=== PATIENT | male | born 1995 | race Two or more races ===

== ENCOUNTER 2023-04-07 22:06 | Emergency (ER) | payer OTHER ==
[~2023-04-07] VITALS: Ht 167.6 cm; Wt 93.0 kg
[2023-04-07] MEDS ORDERED: AMLO10TA59 PO (22:55)
[2023-04-07] MEDS ORDERED: ASPIRIN 81 MG TAB.CHEW PO ONE (23:00)
[2023-04-07] MEDS ORDERED: NITROGLYCERIN OINT 1 GM PACKET TP ONE ×2 (23:00→23:14)
[2023-04-07] MEDS ORDERED: ASPIRIN 81 MG TAB.CHEW ONE (23:14)
[2023-04-07 23:34] LABS: *BILIRUBIN,URIN NEGATIVE (NEGATIVE); *CLARITY,URINE CLEAR (CLEAR); *COLOR,URINE YELLOW (YELLOW); *KETONES,URINE NEGATIVE (NEGATIVE); *PROTEIN,URINE NEGATIVE (NEGATIVE); *UROBILINOGEN,URINE 0.2 E.U./dl (NORMAL); LEUKOCYTE ESTERASE ,URINE NEGATIVE (NEGATIVE); NITRITE, URINE NEGATIVE (NEGATIVE); UGLUCOSE NEGATIVE (NEGATIVE)
[2023-04-07 23:59] LABS: *BLOOD, URINE TRACE (NEGATIVE)
[2023-04-08 00:18] LABS: *AMPHETAMINE, URINE NEGATIVE (NEGATIVE); *BARBITURATE, URINE NEGATIVE (NEGATIVE); *BENZODIAZEPINE, URINE NEGATIVE (NEGATIVE); *CANNABINOID, URINE NEGATIVE (NEGATIVE); *COCCAINE, URINE NEGATIVE (NEGATIVE); *OPIATE, URINE NEGATIVE (NEGATIVE); *PHENCYCLIDINE SCREEN,URINE NEGATIVE (NEGATIVE); FENTANYL, URINE NEGATIVE (NEGATIVE)
[2023-04-08 00:18] LABS: CARBON DIOXIDE 21 mmol/L (21-32); CHLORIDE 103 mmol/L (98-107); GLUCOSE 112 mg/dL (74-106); POTASSIUM 3.7 mmol/L (3.5-5.1); SODIUM SERUM 140 mmol/L (136-145); UREA NITROGEN, BLOOD 11 mg/dL (7-18)
[2023-04-08 00:30] LABS: ALANINE AMINOTRANSFERASE 241 U/L (16-63); ALBUMIN 4.6 g/dL (3.4-5.0); ALKALINE PHOSPHATASE 126 U/L (50-136); ASPARTATE AMINOTRANSFERASE 61 U/L (15-37); BILIRUBIN,DIRECT 0.1 mg/dL (0.0-0.2); BILIRUBIN,TOTAL 0.4 mg/dL (0.2-1.0); TOTAL PROTEIN, SERUM 8.3 g/dL (6.4-8.2)
[2023-04-08] MEDS ORDERED: LORAZEPAM 2 MG/1 ML VIAL IV ONE (00:30)
[2023-04-08] MEDS ORDERED: IV NORMAL SALINE 1000 ML BAG IV ONE (00:30)
[2023-04-08 00:35] LABS: NT-PRO BNP 7 pg/mL (0-125)
[2023-04-08 00:39] LABS: BASOPHILS # (AUTO) 0.1 K/UL (0.0-0.2); BASOPHILS % (AUTO) 0.6 % (0.0-2.0); EOSINOPHILS % (AUTO) 0.1 % (0.0-7.0); HEMATOCRIT 44.6 % (36.7-47.1); HEMOGLOBIN 15.5 g/dL (12.5-16.3); LYMPHOCYTES # (AUTO) 1.3 K/uL (0.8-4.8); LYMPHOCYTES % (AUTO) 10.7 % (20.5-51.5); MEAN CORPUSCULAR HGB CONC 35 g/dL (32.5-36.3); MEAN CORPUSCULAR VOLUME 89.1 fL (73.0-96.2); MONOCYTES # (AUTO) 0.7 K/uL (0.1-1.30); MONOCYTES % (AUTO) 5.5 % (0.0-11.0); NEUTROPHILS # (AUTO) 10.3 K/uL (1.8-8.9); NEUTROPHILS % (AUTO) 83.1 % (38.5-71.5); PLATELET COUNT (AUTO) 276 K/uL (152-348); RED CELL DISTRIBUTION WIDTH 12.9 % (12.1-16.2); WHITE BLOOD COUNT (AUTO) 12.4 K/uL (3.6-10.2)
[2023-04-08 00:50] LABS: DIFFERENTIAL COMMENT 1
[2023-04-08] MEDS ORDERED: LORAZEPAM 2 MG/1 ML VIAL ONE (01:03)
[2023-04-08 01:24] LABS: BACTERIA,URINE NONE SEEN /HPF (NONE SEEN); RBC,URINE 0-3 /HPF (0-3); SQUAMOUS EPITHELIAL CELL,UR FEW /HPF (NONE SEEN); WBC,URINE NONE SEEN /HPF (0-3)
[2023-04-08 02:03] VITALS: BP 132/84; TEMP 97.9; O2SAT 95
== END 2023-04-08 02:04 | disposition home or self-care (01) ==
LOC: ER 22:13
DX: R07.89 Other chest pain (principal); R06.02 Shortness of breath; R53.1 Weakness; Z79.899 Other long term (current) drug therapy
CPT/HCPCS: 99285; 71045; 80076; 80048; 83880; 85025; 85379; 84484 ×2; 36415 ×2; 93005; 80307; 81001; 96374; 96361; J2060; J7040; A4663

== ENCOUNTER 2024-03-26 20:01 | Emergency (ER) | payer OTHER ==
[~2024-03-26] VITALS: Ht 167.6 cm; Wt 90.7 kg
[~2024-03-26 20:01] MED LIST: AMLO10TA59 PO
[2024-03-26] MEDS ORDERED: AZIT250T13 PO (21:51)
[2024-03-26 22:02] VITALS: BP 130/98; TEMP 97.8; O2SAT 98
== END 2024-03-26 22:00 | disposition home or self-care (01) ==
LOC: ER 20:02
DX: J40 Bronchitis, not specified as acute or chronic (principal); Z79.899 Other long term (current) drug therapy; Z20.822 Contact with and (suspected) exposure to COVID-19
CPT/HCPCS: 71045; A4606; A4663

== ENCOUNTER 2024-03-31 14:19 | Emergency (ER) | payer OTHER ==
[~2024-03-31] VITALS: Ht 167.6 cm; Wt 90.7 kg
[~2024-03-31 14:19] MED LIST changes: +AZIT250T13 PO
[2024-03-31] MEDS ORDERED: CLONIDINE HCL 0.1 MG TABLET ONE (15:15)
[2024-03-31 15:16] VITALS: BP 143/95
[2024-03-31] MEDS: CLONIDINE HCL 0.1 MG TABLET PO ONE (15:16)
[2024-03-31 16:05] VITALS: O2SAT 97
== END 2024-03-31 16:23 | disposition home or self-care (01) ==
LOC: ER 14:19
DX: I10 Essential (primary) hypertension (principal); Z79.899 Other long term (current) drug therapy
CPT/HCPCS: 93005; A4606; A4663